=== PATIENT | male | born 1945 | race Caucasian/White ===

== ENCOUNTER → 2019-08-29 | Outpatient (CLI) | payer OTHER ==
[~2019-08-29] MED LIST: ALPHAGAN-P 0.2%5 ML OPH; ASPIRIN81 M1 PO; COZAAR25 MG PO; FLOMAX0.4 MG PO; HUMULIN R100 U/ML; LANTUS100 U/ML; LIPITOR40 MG PO; XALATAN 0.005%2.5 ML INTRAOC
== END ==
LOC: RESCLI 13:46
DX: E10.319 Type 1 diabetes mellitus with unspecified diabetic retinopathy without macular edema (principal); E78.5 Hyperlipidemia, unspecified; I25.10 Atherosclerotic heart disease of native coronary artery without angina pectoris; I73.9 Peripheral vascular disease, unspecified; I10 Essential (primary) hypertension; E03.9 Hypothyroidism, unspecified; Z76.89 Persons encountering health services in other specified circumstances; Z79.899 Other long term (current) drug therapy

== ENCOUNTER → 2019-09-06 | Outpatient (CLI) | payer OTHER ==
[2019-09-06 09:12] LABS: BASO # 0.1 10*3/uL (0.0-0.1); BASO % 0.9 % (0.0-1.0); EOS # 0.5 10*3/uL (0.0-0.4); EOS % 5.7 % (1.0-4.0); HEMATOCRIT 37.1 % (42.0-52.0); HEMOGLOBIN 11.8 g/dl (14.0-18.0); LYMPH # 2.6 10*3/uL (1.3-4.4); LYMPH % 28.6 % (27.0-41.0); MEAN CELL VOLUME 96.9 fl (80.0-94.0); MEAN CORPUSCULAR HGB 30.8 pg (27.0-31.0); MEAN CORPUSCULAR HGB CONC 31.8 g/dl (33.0-37.0); MEAN PLATELET VOLUME 10.3 fl (9.6-12.3); MONO # 0.8 10*3/uL (0.1-1.0); MONO % 8.8 % (3.0-9.0); NEUT % 55.8 % (47.0-73.0); PLATELET COUNT AUTOMATED 225 10*3/uL (130-400); RED BLOOD COUNT 3.83 10*6/uL (4.50-5.90); RED CELL DISTRI WIDTH 14.3 % (0-14.5)
[2019-09-06 09:46] LABS: ALBUMIN 3.3 gm/dl (3.1-4.5); ALKALINE PHOSPHATASE 79 U/L (45-117); BUN 21 mg/dl (7-24); CHLORIDE 104 mmol/L (98-107); CHOLESTEROL 141 mg/dL (<200); HDL CHOLESTEROL 57 mg/dl (40-60); LDL CHOLESTEROL 68 mg/dL (9-159); POTASSIUM 4.5 mmol/L (3.5-5.1); SGOT/AST 15 IU/L (3-35); SGPT/ALT 26 U/L (12-78); SODIUM 140 mmol/L (136-145); TOTAL PROTEIN 6.7 gm/dL (6.4-8.2); TRIGLYCERIDES 82 mg/dl (<150); VLDL CHOLESTEROL 16 mg/dL (6-40)
== END | disposition home or self-care (01) ==
LOC: LAB 08:33
PROVIDERS: Internal Medicine
DX: E03.9 Hypothyroidism, unspecified (principal); E10.319 Type 1 diabetes mellitus with unspecified diabetic retinopathy without macular edema; E78.5 Hyperlipidemia, unspecified

== ENCOUNTER 2019-09-07 11:19 | Emergency (ER) | payer OTHER ==
[~2019-09-07] VITALS: Ht 152.4 cm; Wt 47.6 kg
[2019-09-07 14:18] LABS: INTERNATIONAL NORM RATIO 0.9 (2.0-3.5)
== END 2019-09-07 15:09 | disposition home or self-care (01) ==
LOC: ED 11:19
PROVIDERS: Emergency Medicine
DX: I82.4Y2 Acute embolism and thrombosis of unspecified deep veins of left proximal lower extremity (principal); I10 Essential (primary) hypertension; E11.9 Type 2 diabetes mellitus without complications; E78.00 Pure hypercholesterolemia, unspecified; Z98.62 Peripheral vascular angioplasty status; Z79.4 Long term (current) use of insulin; Z79.899 Other long term (current) drug therapy; Z79.82 Long term (current) use of aspirin; Z90.49 Acquired absence of other specified parts of digestive tract

== ENCOUNTER → 2019-10-21 | Outpatient (CLI) | payer OTHER | END | disposition home or self-care (01) | LOC: US 13:50 | DX: I73.9 Peripheral vascular disease, unspecified (principal); R60.0 Localized edema ==

== ENCOUNTER → 2019-10-24 | Outpatient (CLI) | payer OTHER | END | disposition home or self-care (01) | LOC: RESCLI 00:37 | PROVIDERS: Internal Medicine | DX: I10 Essential (primary) hypertension (principal); E03.9 Hypothyroidism, unspecified; E78.5 Hyperlipidemia, unspecified; E10.319 Type 1 diabetes mellitus with unspecified diabetic retinopathy without macular edema; I25.10 Atherosclerotic heart disease of native coronary artery without angina pectoris; D53.9 Nutritional anemia, unspecified; Z79.4 Long term (current) use of insulin; Z79.82 Long term (current) use of aspirin; Z79.899 Other long term (current) drug therapy ==

== ENCOUNTER → 2019-12-13 | Day surgery (SDC) | payer OTHER ==
[~2019-12-13] VITALS: Ht 152.4 cm; Wt 47.6 kg
[~2019-12-13] MED LIST changes: +HUMULIN R100 UNIT/1 SQ; +KEFLEX 500 MG E2 CAP PO; +LEVEMIR100 UNIT/1 SC
[2019-12-13 11:00] VITALS: BP 181/82
[2019-12-13 12:10] VITALS: BP 143/63
[2019-12-13 12:25] VITALS: BP 164/80
[2019-12-13 12:44] VITALS: BP 174/90
[2019-12-14 15:03] LABS: ACID FAST SPEC PROCESSING Tissue Grinding (.)
== END | disposition home or self-care (01) ==
LOC: SDC 12-11 09:30
PROVIDERS: Podiatrist
DX: I96 Gangrene, not elsewhere classified (principal); I10 Essential (primary) hypertension; E11.9 Type 2 diabetes mellitus without complications; E78.00 Pure hypercholesterolemia, unspecified; I25.10 Atherosclerotic heart disease of native coronary artery without angina pectoris; Z82.49 Family history of ischemic heart disease and other diseases of the circulatory system; Z83.3 Family history of diabetes mellitus

== ENCOUNTER → 2020-04-28 | Outpatient (CLI) | payer OTHER | END | disposition home or self-care (01) | LOC: US 14:14 | PROVIDERS: ATTEND Podiatrist | DX: I96 Gangrene, not elsewhere classified (principal) ==

== ENCOUNTER 2020-06-16 11:32 | Inpatient (IN) | payer OTHER ==
[~2020-06-16] VITALS: Wt 49.9 kg
[2020-06-16] VITALS (15 sets, daily range): BP systolic 121–1132; BP diastolic 49–88
[~2020-06-16 11:32] MED LIST changes: +COZAAR100 MG PO; -COZAAR25 MG PO
[2020-06-16 12:04] LABS: BASO # 0.1 10*3/uL (0.0-0.1); BASO % 0.5 % (0.0-1.0); EOS # 0.5 10*3/uL (0.0-0.4); EOS % 3.9 % (1.0-4.0); HEMATOCRIT 24.1 % (42.0-52.0); LYMPH # 2.2 10*3/uL (1.3-4.4); LYMPH % 18.4 % (27.0-41.0); MEAN CELL VOLUME 89.3 fl (80.0-94.0); MEAN CORPUSCULAR HGB CONC 30.3 g/dl (33.0-37.0); MEAN PLATELET VOLUME 8.9 fl (9.6-12.3); MONO # 1.3 10*3/uL (0.1-1.0); MONO % 10.7 % (3.0-9.0); NEUT % 66.1 % (47.0-73.0); PLATELET COUNT AUTOMATED 528 10*3/uL (130-400); RED CELL DISTRI WIDTH 19.1 % (0-14.5); WHITE BLOOD COUNT 12.1 10*3/uL (4.8-10.8)
[2020-06-16 12:17] LABS: ACT PARTIAL THROMBO TIME 20.2 SECONDS (20.0-32.1)
[2020-06-16 12:21] LABS: ALBUMIN 2.7 gm/dl (3.1-4.5); ALKALINE PHOSPHATASE 189 U/L (45-117); BUN 28 mg/dl (7-24); CHLORIDE 102 mmol/L (98-107); CREATININE 0.99 mg/dL (0.70-1.30); POTASSIUM 4.1 mmol/L (3.5-5.1); SGOT/AST 35 IU/L (3-35); SGPT/ALT 40 U/L (12-78); SODIUM 139 mmol/L (136-145); TOTAL PROTEIN 7.3 gm/dL (6.4-8.2)
--- NOTE | 2020-06-16 14:25 | NUR ---
SPOUSE EDNA [phone]
[2020-06-16] MEDS ORDERED: AMLODIPINE BESY10 MG PO (14:33)
[2020-06-16] MEDS ORDERED: DIALYVITE VIT125 MCG PO (14:36)
[2020-06-16] MEDS ORDERED: NEURONTIN100 MG PO (14:37)
[2020-06-16] MEDS ORDERED: BASAG SOL SC (14:39)
[2020-06-16] MEDS ORDERED: LEVOTHYROXINE75 MCG PO (14:41)
[2020-06-16] MEDS ORDERED: OXYCODONE HCL5 M1 PO (14:42)
[2020-06-16] MEDS ORDERED: OXYCODONE HCL PO (14:42)
[2020-06-16] MEDS ORDERED: SENNA8.6 MG PO (14:43)
--- NOTE | 2020-06-16 15:52 | NUR ---
PT HAS RECENT LEFT BELOW LEG AMPUTATION RECENTLY, HONG INTACT, EDGES WELL APROXIMATED, PINK IN COLOR. BUTTOCKS ARE RED, AND BLANCHABLE, COVERED WITH DRESSING FROM NURSING FACILITY.
--- NOTE | 2020-06-16 15:59 | NUR ---
A 75, admitted to [facility], under the services of RICA Albert MD with a diagnosis of GI BLEED. Chief complaint is SENT FROM [facility]. . Patient arrived via stretcher from ER. Monitor applied. Initial assessment completed. Vital signs taken and recorded. DR. ALONA BATES,RICA Ellis notified of admission to the unit. Orders received. See assessment for past medical history, medications and allergies. Patient and/or family oriented to unit. [facility] visitation policy reviewed JANET WOMACK
--- NOTE | 2020-06-16 20:20 | NUR ---
PATIENT ARRIVED ON THE FLOOR AT THIS TIME. RECEIVED REPORT FROM CALLI BORDEN. VSS. BED IN LOWEST POSITION,CALL LIGHT WITHIN REACH. BED ALARM ON. WILL CONTINUE TO MONITOR.
--- NOTE | 2020-06-16 20:30 | NUR ---
DR. BUSTILLOS ALREADY AWARE OF CONSULT. EGD SCHEDULED FOR TOMORROW MORNING. PATIENT MADE AWARE OF PLAN.
--- NOTE | 2020-06-16 21:00 | NUR ---
NOTIFIED DR. SAGE PATIENT HAS ARRIVED ONTO THE FLOOR. SEE NEW ORDERS.
[2020-06-17] VITALS (9 sets, daily range): BP systolic 82–165; BP diastolic 36–80
--- NOTE | 2020-06-17 | NUR ---
PATIENTS' WATER TAKEN AT THIS TIME. REMINDED HE IS TO BE NPO UNTIL EGD IS DONE. PATIENT VOICES UNDERSTANDING. WILL CONTINUE TO MONITOR.
--- NOTE | 2020-06-17 07:30 | NUR ---
TOOK OVER CARE OF PT. PT RESTING IN BED. RESPIRATIONS EASY AND UNLABORED. NO S/S OF DISTRESS NOTED. CALL LIGHT IN REACH.
--- NOTE | 2020-06-17 08:04 | NUR ---
PATIENT [facility]. PRECERT WILL BE REQUIRED TO RETURN. WILL NEED PT/OT EVALS.
--- NOTE | 2020-06-17 09:00 | NUR ---
Occupational Therapy evaluation completed on 5 with full evaluation to follow. Precautions include BLE BKAs,weakness,moderate complexity level 28050. Recommend OT per POC and SNF upon d/c to enable return home w/ at [facility]. Thank you. Anat Glass OTr/
--- NOTE | 2020-06-17 10:47 | NUR ---
PHYSICAL THERAPY Progress note: Pt was seen today for PT evaluation while on 5th floor. Pt was agreeable and moderate complexity determined based on function and co-morbidities. Recommend SNF upon discharge, refer to evaluation for details. Thank you for this referral. dAelia Galindo, PT
--- NOTE | 2020-06-17 12:57 | NUR ---
OT NOTE Pt was seen this P.M. 1:1 for 10 minute OT session. Upon arrival pt was sitting upright in the w/c. Pt identified by name and and had no complaints at this time. Requested for pt to complete various tasks and pt declined them all stating he was just wanting his surgery and that's all. Pt transferred w/c to EOB with CGA while completing lateral scoot. He then transferred sit to supine with SBA. There he was left with call light in hand, tray table in place, and bed alarm activated for safety. Continue with rec D/C plan to SNF. ASHVIN Pereyra/Jesika
--- NOTE | 2020-06-17 14:08 | NUR ---
PHYSICAL THERAPY TREATMENT TIME: IN 12:52 PM - 1:05 PM 13 MINUTES TOTAL Patient presented to therapy in sitting in bedside wheelchair with report of 0/10 pain level in the L LE. Patient says he doesn't want to do therapy right now because he is going for a medical test this afternoon. Patient does agree to transfer from wheelchair to the bed. Patient transferred sitting in bedside wheelchair to the EOB with SBA. Patient's R armrest was removed from wheelchair. Patient transferred sit EOB to supine in bed with SBA. Patient was left supine in bed with head of bed elevated. Patient's bed alarm was activated. ASHVIN Meyer was present as witness to this treamtent. Patient was 1:1 with this INSPECTOR SUBASSEMBLY for 13 minutes total. IVETTE BARRERA INSPECTOR SUBASSEMBLY
--- NOTE | 2020-06-17 14:30 | NUR ---
PT TAKEN TO SURGERY AT THIS TIME.
--- NOTE | 2020-06-17 17:00 | NUR ---
PT RETURNS FROM SURGERY. WILL CATCH PT UP ON MEDICATIONS. PT STABLE AND HAS NO COMPLAINTS.
--- NOTE | 2020-06-17 19:37 | NUR ---
24 HR chart check completed.
--- NOTE | 2020-06-17 21:16 | NUR ---
CHECKED PT'S BLOOD SUGAR, IT WAS 333. PT REFUSED TO LET ME RECHECK IT TO VERIFY. STATED "JUST GIVE ME THE INSULIN YOU NEED TOO, I'LL BE FINE". EDUCATION WAS PROVIDED ON THE IMPORTANCE OF RECHECKING HIS SUGAR. PT HAD RECEIVED 10 UNITS OF HUMULIN R AND 25 UNITS OF LANTUS PER ORDER. PT STATED THAT WE MAY RECHECK HIS BLOOD SUGAR IN THE MORNING, BUT NOT TONIGHT.
--- NOTE | 2020-06-17 23:30 | NUR ---
ASSUMED CARE OF PT AT THIS TIME. PT SLEEPING. NO S/S OF DISTRESS NOTED. CALL LIGHT IN REACH
[2020-06-18] VITALS: BP 126/59
--- NOTE | 2020-06-18 05:30 | NUR ---
IN TO SEE PT. PT VOICES NO COMPLAINTS. CALL LIGHT IN REACH
--- NOTE | 2020-06-18 06:43 | NUR ---
PT BSG 29. DR. CAR NOTIFIED. ORDERS RECEIVED. PT REFUSING SECOND BLOOD SUGAR CHECK PER POLICY.
--- NOTE | 2020-06-18 06:53 | NUR ---
IN TO GIVE PT DEXTROSE PER DR. CAR ORDER. PT STATES " I DONT NEED THAT CRAP, JUST GIVE ME SOME ORANGE JUICE" EDUCATED PT REASON FOR DEXTROSE. PT REFUSING TO TAKE IT. PT IS ASYMPTOMATIC. PT DRINKING ORANGE JUICE AT THIS TIME. WILL RECHECK SUGAR IN AN HOUR.
--- NOTE | 2020-06-18 07:37 | NUR ---
PRECERT REQUIRED FOR PATIENT TO RETURN TO [facility]. OFFICE ADMINISTRATION FAXED UPDATES TO [facility].
[2020-06-18 08:00] VITALS: BP 150/68
--- NOTE | 2020-06-18 08:00 | NUR ---
BLOOD SUGAR RECHECKED, 118.
--- NOTE | 2020-06-18 09:00 | NUR ---
CM in to see patient. He is currently short term at [facility] and plans to return there upon discharge. 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
--- NOTE | 2020-06-18 10:35 | NUR ---
PHYSICAL THERAPY Patient seen this am 1;1 for therapy visit and was supine in bed upon therapist arrival. Patient identified by name / and reports no new c/o's at this time. Patient is B BKA and reviewed safe transfer technique prior to transfering supine to sit EOB, SBA x 1, tolerating a minute or so of static EOB sit to collect himself. Patient completed lateral scoot transfer from EOB to w/c, CGA, demonstrating Fair+ safety / balance, Patient stated he usually spends time on his couch and does not transfer between w/c on a regular basis throughout the day. Patient returned to supine in bed CGA x 1 and remained with call light, tray table, telephone, bed alarm for safety. Will continue per POC as tolerated, total treatment time 13 minutes. Simón Pan, LEAD INJECTION MOLD TECHNICIAN
--- NOTE | 2020-06-18 10:50 | NUR ---
OT NOTE Pt was seen this A.m. 1:1 for 15 minute OT session. Upon arrival pt was supine in bed. Pt identified by name and and had no complaints at this time. Pt was agreeable to one transfer to the chair and back and then no other activity at this time. Pt transferred supine to sit EOB with CGA followed by lateral scoot EOB <> w/c with CGA for safety. Pt was left supine in bed with call light in hand, tray table in place, and bed alarm activated for safety. Continue with rec D/C plan SNF. ASHVIN Pereyra/Jesika
[2020-06-18 12:00] VITALS: BP 139/57
--- NOTE | 2020-06-18 12:00 | NUR ---
PT RESTING IN BED. NO COMPLAINTS VOICED. BLOOD SUGAR 149. ALL NEEDS CURRENTLY MET. CALL LIGHT IN [facility].
[2020-06-18 16:00] VITALS: BP 133/57
--- NOTE | 2020-06-18 19:00 | NUR ---
REPORT RECEIVED. PT LYING IN BED AT THIS TIME WITH EYES CLOSED. NO COMPLAINTS. CALL LIGHT IN REACH.
[2020-06-18 20:00] VITALS: BP 113/52
--- NOTE | 2020-06-18 21:00 | NUR ---
IN TO SEE PT. VOICES NO COMPLAINTS. CALL LIGHT IN REACH
--- NOTE | 2020-06-18 23:04 | NUR ---
PT APPEARS TO BE SLEEPING AT THIS TIME. RESPIRATIONS EASY AND UNLABORED. CALL LIGHT IN REACH
[2020-06-19] VITALS: BP 149/76
--- NOTE | 2020-06-19 00:43 | NUR ---
24 HR chart check completed.
--- NOTE | 2020-06-19 02:30 | NUR ---
PT SLEEPING AT THIS TIME
[2020-06-19 06:33] LABS: BASO # 0.1 10*3/uL (0.0-0.1); BASO % 0.8 % (0.0-1.0); EOS # 0.6 10*3/uL (0.0-0.4); EOS % 6.2 % (1.0-4.0); HEMATOCRIT 36.4 % (42.0-52.0); LYMPH # 2.6 10*3/uL (1.3-4.4); LYMPH % 28.5 % (27.0-41.0); MEAN CELL VOLUME 89.9 fl (80.0-94.0); MEAN CORPUSCULAR HGB 28.6 pg (27.0-31.0); MEAN CORPUSCULAR HGB CONC 31.9 g/dl (33.0-37.0); MEAN PLATELET VOLUME 8.9 fl (9.6-12.3); MONO % 10.4 % (3.0-9.0); NEUT # 4.9 10*3/uL (2.3-7.9); NEUT % 53.8 % (47.0-73.0); PLATELET COUNT AUTOMATED 554 10*3/uL (130-400); RED BLOOD COUNT 4.05 10*6/uL (4.50-5.90); RED CELL DISTRI WIDTH 17.7 % (0-14.5); WHITE BLOOD COUNT 9.2 10*3/uL (4.8-10.8)
--- NOTE | 2020-06-19 06:48 | NUR ---
BSG 31. DR. SAGE NOTIFIED. PT REFUSING DEXTROSE. PT WANTED ORANGE JUICE. PER DR SAGE, WILL RECHECK IN ONE HOUR.
[2020-06-19 08:00] VITALS: BP 111/91
--- NOTE | 2020-06-19 08:30 | NUR ---
CM in to see patient. He is currently short term at [facility] and plans to return there upon discharge. 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 Narendra started this morning. COVID pending.
--- NOTE | 2020-06-19 09:30 | NUR ---
PHYSICAL THERAPY Patient seen this am 1;1 for therapy visit and was resting supine in bed upon therapist arrival. Patient identified by name / and joined by OT group fitness assistant department head for observation only this session. Patient reports feeling mild generalized weakness and transfers supine to sit EOB, CGA x 1. Patient tolerated static EOB sit for a minute or so to collect himself, SBA then instructed on safe sliding board transfer to w/c. Patient performed lateral scoot transfer with use of sliding board from EOB sit to w/c, MIN A x 2, demonstrating forward facing LOB x 1, requiring MIN therapist assist correct. Patient returned to EOB sit via sliding board transfer with increased fatigue noted and sit to supine MIN A for HOB positioning. Patient remained in bed with call light, tray table, telephone and bed alarm for safety. Will continue per POC as tolerated, total treatment time 16 minutes. Simón Pan, ASSIGNMENT OFFICER
--- NOTE | 2020-06-19 09:30 | NUR ---
OT NOTE PATIENT IN BED UPON ARRIVAL.PATIENT COMPLETED 15 MINUTES OF OT THIS DATE. PATIENT RELUCTANT TO COMPLETE THERAPY BUT WILLING AFTER EDUCATION. PATIENT IDENTIFIED BY NAME AND DATE OF . COMPLETED SUPINE TO SIT EOB USE RAIL INCREASE TIME SBA. COMPLETED SLIDE BOARD TRANSFER BED TO AND FROM W/C MIN A X 2 WITH INCREASE TIME AND MODERATE VERBAL CUES TECHNIQUE AND TO LIFT BOTTOM WITH BANDAGE INTACT. PATIENT DEMONSTRATED LOSS OF BALANCE TRANSFERING W/C TO BED MIN A X 2 USE SLIDE BOARD WITH MIN A TO RECOVER. PILLOW CASE APPLIED TO SLIDE BOARD BARRIER FOR INCREASE SKIN INTEGRITY. COMPLETED UB DRESSING GOWN MIN A TO MANAGE TIES. SIT TO SUPINE MIN A. PATIENT IN BED WITH ALARM SET AND CALL LIGHT WITHIN REACH. CONTINUE TOWARDS PLAN OF CARE. BALA LOCK/Jesika
--- NOTE | 2020-06-19 10:27 | NUR ---
DATABASE ADMINISTRATION MANAGER FAXED UPDATES TO [facility]. DATABASE ADMINISTRATION MANAGER ASKED TO BE PRECERT STARTED.
[2020-06-19 12:00] VITALS: BP 130/58
--- NOTE | 2020-06-19 12:34 | NUR ---
PRECERT IS PENDING.
--- NOTE | 2020-06-19 12:41 | NUR ---
DISCHARGE PICTURE TAKEN
--- NOTE | 2020-06-19 14:21 | NUR ---
PHYSICAL THERAPY CO-SIGN I approve of the Physical Therapy notes written above. Mely Varghese PT
--- NOTE | 2020-06-19 14:33 | NUR ---
OCCUPATIONAL THERAPY CO-SIGN I approve of the Occupational Therapy notes written above. NYDIA JORDAN OTR/Jesika
[2020-06-19 16:00] VITALS: BP 105/57
--- NOTE | 2020-06-19 17:51 | NUR ---
REPORT TO [facility]
[2020-06-19] MEDS ORDERED: Carafate1 GM PO (17:55)
[2020-06-19] MEDS ORDERED: PROTONIX40 MG PO (17:55)
--- NOTE | 2020-06-19 18:16 | NUR ---
PTS WALLET AND WATCH, PANTS AND TSHIRT RETURNED TO PT, GLASSES ARE ON PT NO OTHER CLOTHING FOUND PT THOUGHT HE MIGHT HAVE BRIEFS
--- NOTE | 2020-06-19 18:29 | NUR ---
RETURN TO [facility] VIA [facility]
== END 2020-06-19 18:29 | disposition other institution (70) | DRG 378 ==
LOC: ED 11:32 → EDHOLD 13:39 → 5E 13:39
PROVIDERS: Emergency Medicine; Internal Medicine Gastroenterology; ADMIT Internal Medicine; ATTEND Internal Medicine
PROC: 30233N1 Transfusion of Nonautologous Red Blood Cells into Peripheral Vein, Percutaneous Approach (ICD-10-PCS; principal; 2020-06-16)
PROC: 0DB68ZX Excision of Stomach, Via Natural or Artificial Opening Endoscopic, Diagnostic (ICD-10-PCS; 2020-06-17)
DX: K29.71 Gastritis, unspecified, with bleeding (principal); D62 Acute posthemorrhagic anemia; E44.0 Moderate protein-calorie malnutrition; K25.4 Chronic or unspecified gastric ulcer with hemorrhage; K26.4 Chronic or unspecified duodenal ulcer with hemorrhage; E03.9 Hypothyroidism, unspecified; E11.42 Type 2 diabetes mellitus with diabetic polyneuropathy; Z20.828 Contact with and (suspected) exposure to other viral communicable diseases; I25.10 Atherosclerotic heart disease of native coronary artery without angina pectoris; G89.29 Other chronic pain; M54.5 Low back pain; E78.2 Mixed hyperlipidemia; E11.51 Type 2 diabetes mellitus with diabetic peripheral angiopathy without gangrene; Z98.52 Vasectomy status; Z90.49 Acquired absence of other specified parts of digestive tract; Z89.512 Acquired absence of left leg below knee; Z89.511 Acquired absence of right leg below knee; Z83.3 Family history of diabetes mellitus; Z82.49 Family history of ischemic heart disease and other diseases of the circulatory system

== ENCOUNTER → 2020-11-16 | Outpatient (CLI) | payer OTHER ==
[~2020-11-16] MED LIST changes: +AMLODIPINE BESY10 MG PO; +BASAG SOL SC; +Carafate1 GM PO; +DIALYVITE VIT125 MCG PO; +LEVOTHYROXINE75 MCG PO; +NEURONTIN100 MG PO; +OXYCODONE HCL PO; +OXYCODONE HCL5 M1 PO; +PROTONIX40 MG PO; +SENNA8.6 MG PO
[2020-11-16 09:58] LABS: CHLORIDE 107 mmol/L (98-107); POTASSIUM 4.3 mmol/L (3.5-5.1); SODIUM 142 mmol/L (136-145)
[2020-11-16 10:31] LABS: ALBUMIN 3.8 gm/dl (3.1-4.5); ALKALINE PHOSPHATASE 95 U/L (45-117); BUN 20 mg/dl (7-24); CHOLESTEROL 136 mg/dL (<200); CREATININE 0.91 mg/dL (0.70-1.30); FREE T4 1.06 ng/dl (0.76-1.46); HDL CHOLESTEROL 69 mg/dl (40-60); LDL CHOLESTEROL 56 mg/dL (9-159); SGOT/AST 20 IU/L (3-35); SGPT/ALT 49 U/L (12-78); TOTAL PROTEIN 7.6 gm/dL (6.4-8.2); TRIGLYCERIDES 56 mg/dl (<150); VLDL CHOLESTEROL 11 mg/dL (6-40)
[2020-11-17 10:07] LABS: CREATININE,URINE 55.1 mg/dL (Not Estab.)
== END | disposition home or self-care (01) ==
LOC: LAB 08:40
PROVIDERS: ATTEND Internal Medicine Endocrinology, Diabetes & Metabolism
DX: E10.319 Type 1 diabetes mellitus with unspecified diabetic retinopathy without macular edema (principal); E55.9 Vitamin D deficiency, unspecified; E03.9 Hypothyroidism, unspecified

== ENCOUNTER → 2021-03-10 | Outpatient (CLI) | payer OTHER ==
[2021-03-10 09:54] LABS: ALBUMIN 3.9 gm/dl (3.1-4.5); ALKALINE PHOSPHATASE 74 U/L (45-117); BUN 25 mg/dl (7-24); CHLORIDE 105 mmol/L (98-107); CHOLESTEROL 139 mg/dL (<200); CREATININE 1.32 mg/dL (0.70-1.30); LDL CHOLESTEROL 62 mg/dL (9-159); POTASSIUM 4.9 mmol/L (3.5-5.1); SGOT/AST 24 IU/L (3-35); SGPT/ALT 33 U/L (12-78); SODIUM 139 mmol/L (136-145); TOTAL PROTEIN 7.7 gm/dL (6.4-8.2); TRIGLYCERIDES 58 mg/dl (<150)
== END | disposition home or self-care (01) ==
LOC: LAB 08:57
PROVIDERS: ATTEND Internal Medicine Endocrinology, Diabetes & Metabolism
DX: E10.319 Type 1 diabetes mellitus with unspecified diabetic retinopathy without macular edema (principal); E55.9 Vitamin D deficiency, unspecified

== ENCOUNTER → 2021-04-09 | Outpatient (CLI) | payer OTHER ==
[2021-04-09 11:14] LABS: FREE T4 0.87 ng/dl (0.76-1.46)
[2021-04-09 11:19] LABS: THYROID STIM HORMONE (HS) 4.97 uIU/ml (0.358-4.75)
[2021-04-10 09:06] LABS: CREATININE,URINE 69.2 mg/dL (Not Estab.)
== END | disposition home or self-care (01) ==
LOC: LAB 09:59
PROVIDERS: ATTEND Internal Medicine Endocrinology, Diabetes & Metabolism
DX: E03.9 Hypothyroidism, unspecified (principal)

== ENCOUNTER → 2021-06-22 | Outpatient (CLI) | payer OTHER ==
[2021-06-22 11:37] LABS: ALBUMIN 3.7 gm/dl (3.1-4.5); ALKALINE PHOSPHATASE 78 U/L (45-117); BUN 23 mg/dl (7-24); CHLORIDE 106 mmol/L (98-107); CHOLESTEROL 142 mg/dL (<200); CREATININE 1.04 mg/dL (0.70-1.30); FREE T4 1.45 ng/dl (0.76-1.46); LDL CHOLESTEROL 57 mg/dL (9-159); POTASSIUM 4.2 mmol/L (3.5-5.1); SGOT/AST 25 IU/L (3-35); SGPT/ALT 38 U/L (12-78); SODIUM 140 mmol/L (136-145); TOTAL PROTEIN 7.5 gm/dL (6.4-8.2); TRIGLYCERIDES 74 mg/dl (<150)
== END | disposition home or self-care (01) ==
LOC: LAB 10:47
PROVIDERS: ATTEND Internal Medicine Endocrinology, Diabetes & Metabolism
DX: E10.319 Type 1 diabetes mellitus with unspecified diabetic retinopathy without macular edema (principal); E03.9 Hypothyroidism, unspecified; E55.9 Vitamin D deficiency, unspecified

== ENCOUNTER 2021-11-22 10:01 | Emergency (ER) | payer OTHER ==
[~2021-11-22] VITALS: Wt 40.8 kg
[2021-11-22 10:21] LABS: BASO # 0.1 10*3/uL (0.0-0.1); BASO % 0.7 % (0.0-1.0); EOS # 1.1 10*3/uL (0.0-0.4); EOS % 8.9 % (1.0-4.0); HEMATOCRIT 40.4 % (42.0-52.0); LYMPH % 32.9 % (27.0-41.0); MEAN CORPUSCULAR HGB 30.5 pg (27.0-31.0); MEAN CORPUSCULAR HGB CONC 33.9 g/dl (33.0-37.0); MEAN PLATELET VOLUME 10.8 fl (9.6-12.3); MONO % 8.3 % (3.0-9.0); PLATELET COUNT AUTOMATED 282 10*3/uL (130-400); RED BLOOD COUNT 4.49 10*6/uL (4.50-5.90); RED CELL DISTRI WIDTH 13.4 % (0-14.5); WHITE BLOOD COUNT 12.2 10*3/uL (4.8-10.8)
[2021-11-22 10:30] LABS: ACT PARTIAL THROMBO TIME 26.4 SECONDS (20.0-32.1)
[2021-11-22 11:01] LABS: ALKALINE PHOSPHATASE 72 U/L (45-117); BUN 21 mg/dl (7-24); CHLORIDE 100 mmol/L (98-107); POTASSIUM 4.3 mmol/L (3.5-5.1); SGOT/AST 26 IU/L (3-35); SGPT/ALT 31 U/L (12-78); SODIUM 136 mmol/L (136-145); TOTAL PROTEIN 7.4 gm/dL (6.4-8.2)
== END 2021-11-23 08:00 | disposition short-term general hospital (02) ==
LOC: ED 10:01
PROVIDERS: Emergency Medicine
DX: I21.4 Non-ST elevation (NSTEMI) myocardial infarction (principal); E10.9 Type 1 diabetes mellitus without complications; Z79.899 Other long term (current) drug therapy; Z79.82 Long term (current) use of aspirin; Z90.49 Acquired absence of other specified parts of digestive tract; Z90.89 Acquired absence of other organs; Z98.890 Other specified postprocedural states

== ENCOUNTER → 2022-03-02 | Outpatient (CLI) | payer OTHER | END | disposition home or self-care (01) | LOC: RAD 11:14 | PROVIDERS: ATTEND Internal Medicine | DX: M89.8X9 Other specified disorders of bone, unspecified site (principal); M25.70 Osteophyte, unspecified joint ==

== ENCOUNTER → 2022-07-27 | Outpatient (CLI) | payer OTHER ==
[2022-07-27 08:54] LABS: HEMATOCRIT 39.9 % (42.0-52.0); MEAN CELL VOLUME 93.4 fl (80.0-94.0); MEAN CORPUSCULAR HGB 30.2 pg (27.0-31.0); MEAN CORPUSCULAR HGB CONC 32.3 g/dl (33.0-37.0); RED BLOOD COUNT 4.27 10*6/uL (4.50-5.90); WHITE BLOOD COUNT 8.6 10*3/uL (4.8-10.8)
[2022-07-27 09:21] LABS: ALKALINE PHOSPHATASE 69 U/L (46-116); BUN 18 mg/dl (9-23); CHLORIDE 103 mmol/L (98-107); CHOLESTEROL 128 mg/dL (<200); CREATININE 1.15 mg/dL (0.70-1.30); LDL CHOLESTEROL 61 mg/dL (9-159); POTASSIUM 4.3 mmol/L (3.4-5.1); SGPT/ALT 16 U/L (10-49); SODIUM 138 mmol/L (136-145); THYROID STIM HORMONE (HS) 15.445 uIU/ml (0.550-4.780); TOTAL PROTEIN 6.8 gm/dL (6.0-8.0); TRIGLYCERIDES 62 mg/dl (<150)
== END | disposition home or self-care (01) ==
LOC: LAB 08:15
PROVIDERS: ATTEND Internal Medicine
DX: Z12.5 Encounter for screening for malignant neoplasm of prostate (principal); I10 Essential (primary) hypertension; E78.2 Mixed hyperlipidemia; E10.42 Type 1 diabetes mellitus with diabetic polyneuropathy

== ENCOUNTER → 2022-09-19 | Outpatient (CLI) | payer OTHER ==
[2022-09-19 13:23] LABS: BILIRUBIN Negative (Negative); BLOOD Negative (Negative); CLARITY Clear (Clear); COLOR Yellow (Yellow); GLUCOSE Negative (Negative); KETONE Negative (Negative); LEUKO ESTERASE Negative (Negative); NITRITE Negative (Negative); SPECIFIC GRAVITY 1.015 (1.001-1.030)
[2022-09-19 13:32] LABS: EPITHELIAL CELLS 0-2
== END | disposition home or self-care (01) ==
LOC: LAB 12:14
PROVIDERS: ATTEND Nurse Practitioner Family
DX: R30.0 Dysuria (principal); R97.20 Elevated prostate specific antigen [PSA]

== ENCOUNTER → 2022-12-02 | Outpatient (CLI) | payer OTHER ==
[2022-12-02 09:22] LABS: BILIRUBIN Negative (Negative); BLOOD Negative (Negative); CLARITY Clear (Clear); COLOR Yellow (Yellow); GLUCOSE Negative (Negative); KETONE Trace (Negative); LEUKO ESTERASE Negative (Negative); NITRITE Negative (Negative); PH 5.5 (4.5-8.0)
[2022-12-02 09:36] LABS: ALKALINE PHOSPHATASE 106 U/L (46-116); BUN 17 mg/dl (9-23); CHLORIDE 105 mmol/L (98-107); CHOLESTEROL 127 mg/dL (<200); FREE T4 1.29 ng/dl (0.89-1.76); LDL CHOLESTEROL 59 mg/dL (9-159); POTASSIUM 4.1 mmol/L (3.4-5.1); SGPT/ALT 46 U/L (10-49); THYROID STIM HORMONE (HS) 1.977 uIU/ml (0.550-4.780); TOTAL PROTEIN 6.9 gm/dL (6.0-8.0); TRIGLYCERIDES 56 mg/dl (<150)
[2022-12-02 09:55] LABS: VITAMIN D, 25-HYDROXY 30.7 ng/mL (30-100)
[2022-12-02 10:31] LABS: MUCOUS TRACE; RBC 0-2 rbc/hpf (0-2); WBC 0-2 wbc/hpf (0-5)
== END | disposition home or self-care (01) ==
LOC: LAB 08:31
PROVIDERS: ATTEND Internal Medicine
DX: E11.65 Type 2 diabetes mellitus with hyperglycemia (principal); E78.5 Hyperlipidemia, unspecified; E03.9 Hypothyroidism, unspecified; E55.9 Vitamin D deficiency, unspecified; D64.9 Anemia, unspecified

== ENCOUNTER → 2023-01-11 | Outpatient (CLI) | payer OTHER ==
[2023-01-11 14:40] LABS: BASO # 0.1 10*3/uL (0.0-0.1); BASO % 0.7 % (0.0-1.0); EOS # 1.1 10*3/uL (0.0-0.4); EOS % 10.8 % (1.0-4.0); HEMATOCRIT 38.8 % (42.0-52.0); LYMPH # 2.2 10*3/uL (1.3-4.4); LYMPH % 21.3 % (27.0-41.0); MEAN CELL VOLUME 91.3 fl (80.0-94.0); MEAN CORPUSCULAR HGB 30.6 pg (27.0-31.0); MEAN CORPUSCULAR HGB CONC 33.5 g/dl (33.0-37.0); MEAN PLATELET VOLUME 10.9 fl (9.6-12.3); MONO # 0.8 10*3/uL (0.1-1.0); MONO % 7.4 % (3.0-9.0); NEUT # 6.1 10*3/uL (2.3-7.9); NEUT % 59.4 % (47.0-73.0); PLATELET COUNT AUTOMATED 233 10*3/uL (130-400); RED BLOOD COUNT 4.25 10*6/uL (4.50-5.90); RED CELL DISTRI WIDTH 14.4 % (0-14.5); WHITE BLOOD COUNT 10.2 10*3/uL (4.8-10.8)
[2023-01-11 15:08] LABS: ALKALINE PHOSPHATASE 91 U/L (46-116); BUN 19 mg/dl (9-23); CHLORIDE 102 mmol/L (98-107); POTASSIUM 4.8 mmol/L (3.4-5.1); SGPT/ALT 33 U/L (10-49); TOTAL PROTEIN 7.1 gm/dL (6.0-8.0)
== END | disposition home or self-care (01) ==
LOC: LAB 13:53
PROVIDERS: ATTEND Radiology Radiation Oncology
DX: C61 Malignant neoplasm of prostate (principal)

== ENCOUNTER → 2023-02-01 | Outpatient (CLI) | payer OTHER ==
[2023-02-01 12:46] LABS: HEMATOCRIT 36.3 % (42.0-52.0); MEAN CELL VOLUME 92.6 fl (80.0-94.0); MEAN CORPUSCULAR HGB 30.9 pg (27.0-31.0); MEAN CORPUSCULAR HGB CONC 33.3 g/dl (33.0-37.0); MEAN PLATELET VOLUME 10.6 fl (9.6-12.3); RED BLOOD COUNT 3.92 10*6/uL (4.50-5.90); RED CELL DISTRI WIDTH 14.5 % (0-14.5); WHITE BLOOD COUNT 5.7 10*3/uL (4.8-10.8)
[2023-02-01 13:15] LABS: BUN 16 mg/dl (9-23); CHLORIDE 105 mmol/L (98-107); POTASSIUM 4.5 mmol/L (3.4-5.1)
== END | disposition home or self-care (01) ==
LOC: LAB 12:23
PROVIDERS: ATTEND Radiology Radiation Oncology
DX: C61 Malignant neoplasm of prostate (principal)

== ENCOUNTER → 2023-03-15 | Outpatient (CLI) | payer OTHER ==
[2023-03-15 09:28] LABS: HEMATOCRIT 36.5 % (42.0-52.0); MEAN CELL VOLUME 94.8 fl (80.0-94.0); MEAN CORPUSCULAR HGB 31.4 pg (27.0-31.0); MEAN CORPUSCULAR HGB CONC 33.2 g/dl (33.0-37.0); MEAN PLATELET VOLUME 10.3 fl (9.6-12.3); RED BLOOD COUNT 3.85 10*6/uL (4.50-5.90); RED CELL DISTRI WIDTH 14.9 % (0-14.5)
[2023-03-15 10:02] LABS: ALKALINE PHOSPHATASE 97 U/L (46-116); BUN 14 mg/dl (9-23); CHLORIDE 104 mmol/L (98-107); POTASSIUM 4.1 mmol/L (3.4-5.1); SGPT/ALT 39 U/L (10-49); TOTAL PROTEIN 6.7 gm/dL (6.0-8.0)
== END | disposition home or self-care (01) ==
LOC: LAB 09:01
PROVIDERS: ATTEND Radiology Radiation Oncology
DX: C61 Malignant neoplasm of prostate (principal)

== ENCOUNTER → 2023-05-31 | Outpatient (CLI) | payer OTHER | END | disposition home or self-care (01) | LOC: LAB 10:34 | PROVIDERS: ATTEND Urology | DX: R97.20 Elevated prostate specific antigen [PSA] (principal) ==

== ENCOUNTER 2023-08-11 13:04 | Inpatient (IN) | payer OTHER ==
[2023-08-11] VITALS (8 sets, daily range): BP systolic 80–160; BP diastolic 39–124
[~2023-08-11] VITALS: Ht 177.8 cm; Wt 45.4 kg
[~2023-08-11 13:04] MED LIST changes: +ALDACTONE25 MG PO; +CARVEDILOL12.5 MG PO; +COREG12.5 M1 PO; +DOXYCYCLINE HY100 M3 PO; +IMDUR SA30 MG PO; +LANTUS SOL100 UNIT/1 SQ; +LASIX40 MG PO; +NOVOLOG100 UNIT/1 SQ
[2023-08-11 16:29] LABS: BASO % 0.1 % (0.0-1.0); HEMATOCRIT 27.7 % (42.0-52.0); LYMPH # 0.5 10*3/uL (1.3-4.4); LYMPH % 3.1 % (27.0-41.0); MEAN CELL VOLUME 92.3 fl (80.0-94.0); MEAN CORPUSCULAR HGB CONC 32.5 g/dl (33.0-37.0); MEAN PLATELET VOLUME 11.3 fl (9.6-12.3); MONO # 1.1 10*3/uL (0.1-1.0); MONO % 6.4 % (3.0-9.0); NEUT % 89.6 % (47.0-73.0); PLATELET COUNT AUTOMATED 228 10*3/uL (130-400); WHITE BLOOD COUNT 16.7 10*3/uL (4.8-10.8)
[2023-08-11 16:51] LABS: POTASSIUM 4.9 mmol/L (3.4-5.1); TOTAL PROTEIN 6.6 gm/dL (6.0-8.0)
[2023-08-11 21:45] LABS: BILIRUBIN Negative (Negative); BLOOD Negative (Negative); CLARITY Clear (Clear); COLOR Yellow (Yellow); GLUCOSE Negative (Negative); KETONE Negative (Negative); LEUKO ESTERASE Negative (Negative); NITRITE Negative (Negative); SPECIFIC GRAVITY 1.015 (1.001-1.030); UROBILINOGEN 0.2 E.U./dl (0.0-1.0)
[2023-08-11 21:53] LABS: BACTERIA TRACE; WBC 0-2 wbc/hpf (0-5)
[2023-08-12 08:00] VITALS: BP 188/110
[2023-08-12 10:19] VITALS: BP 118/50
[2023-08-12 11:56] LABS: HEMATOCRIT 30.3 % (42.0-52.0); MEAN CELL VOLUME 93.2 fl (80.0-94.0); MEAN CORPUSCULAR HGB 30.5 pg (27.0-31.0); MEAN CORPUSCULAR HGB CONC 32.7 g/dl (33.0-37.0); MEAN PLATELET VOLUME 11.2 fl (9.6-12.3); PLATELET COUNT AUTOMATED 261 10*3/uL (130-400); RED BLOOD COUNT 3.25 10*6/uL (4.50-5.90); RED CELL DISTRI WIDTH 13.9 % (0-14.5); WHITE BLOOD COUNT 14.9 10*3/uL (4.8-10.8)
[2023-08-12 12:03] LABS: MANUAL DIFF REFLEX YES
[2023-08-12 12:16] LABS: POTASSIUM 4.9 mmol/L (3.4-5.1)
[2023-08-12 12:31] LABS: BURR CELLS FEW; PLATELET SUFFICIENCY NORMAL (NORMAL); TOTAL CELLS COUNTED 100 #CELLS
[2023-08-12 16:00] VITALS: BP 118/50
[2023-08-12 20:00] VITALS: BP 140/72
[2023-08-13] VITALS: BP 130/72
[2023-08-13 08:00] VITALS: BP 110/54
[2023-08-13 11:29] LABS: HEMATOCRIT 30.2 % (42.0-52.0); MEAN CORPUSCULAR HGB 29.6 pg (27.0-31.0); MEAN CORPUSCULAR HGB CONC 31.1 g/dl (33.0-37.0); MEAN PLATELET VOLUME 11.5 fl (9.6-12.3); PLATELET COUNT AUTOMATED 282 10*3/uL (130-400); RED BLOOD COUNT 3.18 10*6/uL (4.50-5.90); RED CELL DISTRI WIDTH 13.8 % (0-14.5); WHITE BLOOD COUNT 10.5 10*3/uL (4.8-10.8)
[2023-08-13 11:30] LABS: MANUAL DIFF REFLEX YES
[2023-08-13 11:52] LABS: PLATELET SUFFICIENCY NORMAL (NORMAL); TOTAL CELLS COUNTED 100 #CELLS
[2023-08-13 11:53] LABS: BURR CELLS MODERATE
[2023-08-13 11:56] LABS: POTASSIUM 5.5 mmol/L (3.4-5.1)
[2023-08-13 12:00] VITALS: BP 146/55
[2023-08-13 16:00] VITALS: BP 105/54
[2023-08-13 20:00] VITALS: BP 103/48
[2023-08-14] VITALS: BP 101/41
[2023-08-14 05:22] LABS: BUN 50 mg/dl (9-23); CHLORIDE 102 mmol/L (98-107)
[2023-08-14 06:01] LABS: POTASSIUM 4.5 mmol/L (3.4-5.1)
[2023-08-14 06:22] LABS: BASO % 0.1 % (0.0-1.0); HEMATOCRIT 27.9 % (42.0-52.0); LYMPH # 0.6 10*3/uL (1.3-4.4); LYMPH % 4.2 % (27.0-41.0); MEAN CELL VOLUME 92.1 fl (80.0-94.0); MEAN CORPUSCULAR HGB 29.7 pg (27.0-31.0); MEAN CORPUSCULAR HGB CONC 32.3 g/dl (33.0-37.0); MEAN PLATELET VOLUME 11.7 fl (9.6-12.3); MONO # 0.9 10*3/uL (0.1-1.0); MONO % 6.1 % (3.0-9.0); NEUT # 13.4 10*3/uL (2.3-7.9); NEUT % 88.9 % (47.0-73.0); PLATELET COUNT AUTOMATED 305 10*3/uL (130-400); RED BLOOD COUNT 3.03 10*6/uL (4.50-5.90)
[2023-08-14 08:00] VITALS: BP 105/79
[2023-08-14 12:00] VITALS: BP 138/53
[2023-08-14] MEDS ORDERED: ZITHROMAX250 MG PO (14:25)
== END 2023-08-14 15:20 | disposition home or self-care (01) | DRG 177 ==
LOC: ED 13:04 → 4E 18:26 → EDHOLD 18:26 → 4E 22:36
PROVIDERS: Nurse Practitioner Family; Student in an Organized Health Care Education/Training Program; ADMIT Internal Medicine; ATTEND Internal Medicine
PROC: XW033E5 Introduction of Remdesivir Anti-infective into Peripheral Vein, Percutaneous Approach, New Technology Group 5 (ICD-10-PCS; principal; 2023-08-11)
DX: U07.1 COVID-19 (principal); I50.33 Acute on chronic diastolic (congestive) heart failure; N17.0 Acute kidney failure with tubular necrosis; J15.5 Pneumonia due to Escherichia coli; J12.82 Pneumonia due to coronavirus disease 2019; E44.0 Moderate protein-calorie malnutrition; E87.1 Hypo-osmolality and hyponatremia; J98.11 Atelectasis; Z68.1 Body mass index [BMI] 19.9 or less, adult; E03.9 Hypothyroidism, unspecified; N40.0 Benign prostatic hyperplasia without lower urinary tract symptoms; R00.1 Bradycardia, unspecified; R79.89 Other specified abnormal findings of blood chemistry; D64.9 Anemia, unspecified; E11.65 Type 2 diabetes mellitus with hyperglycemia; I11.0 Hypertensive heart disease with heart failure; H54.62 Unqualified visual loss, left eye, normal vision right eye; Z86.718 Personal history of other venous thrombosis and embolism; Z89.512 Acquired absence of left leg below knee; Z82.49 Family history of ischemic heart disease and other diseases of the circulatory system; Z80.8 Family history of malignant neoplasm of other organs or systems; Z90.49 Acquired absence of other specified parts of digestive tract; Z95.5 Presence of coronary angioplasty implant and graft; Z82.3 Family history of stroke; Z89.511 Acquired absence of right leg below knee; I25.2 Old myocardial infarction; Z79.82 Long term (current) use of aspirin; Z98.1 Arthrodesis status

== ENCOUNTER → 2023-11-28 | Outpatient (CLI) | payer MEDICARE ==
[~2023-11-28] MED LIST changes: +VIBRAMYCIN HYC100 MG PO; +ZITHROMAX250 MG PO
== END | disposition home or self-care (01) ==
LOC: LAB 10:25
PROVIDERS: ATTEND Urology
DX: C61 Malignant neoplasm of prostate (principal)

== ENCOUNTER 2025-03-24 12:19 | Emergency (ER) | payer MEDICARE ==
[~2025-03-24] VITALS: Ht 152.4 cm; Wt 59.9 kg
[2025-03-24 13:03] LABS: BASO # 0.1 10*3/uL (0.0-0.1); BASO % 0.8 % (0.0-1.0); EOS # 0.5 10*3/uL (0.0-0.4); EOS % 6.5 % (1.0-4.0); MEAN CELL VOLUME 94.7 fl (80.0-94.0); MEAN CORPUSCULAR HGB 30.5 pg (27.0-31.0); MEAN PLATELET VOLUME 10.4 fl (9.6-12.3); MONO # 1.2 10*3/uL (0.1-1.0); MONO % 13.8 % (3.0-9.0); NEUT # 5.0 10*3/uL (2.3-7.9); NEUT % 60.1 % (47.0-73.0); NUCLEATED RED BLOOD CELL 0.0 % (0.0-0.0); NUCLEATED RED BLOOD CELL 0.0 10*3/uL (0.0-0.0); PLATELET COUNT AUTOMATED 237 10*3/uL (130-400); RED CELL DISTRI WIDTH 14.5 % (0-14.5)
[2025-03-24 13:26] LABS: BUN 21 mg/dl (9-23)
== END 2025-03-24 15:52 | disposition home or self-care (01) ==
LOC: ED 12:19
PROVIDERS: Internal Medicine
DX: E11.649 Type 2 diabetes mellitus with hypoglycemia without coma (principal); Z90.49 Acquired absence of other specified parts of digestive tract; Z90.89 Acquired absence of other organs; Z79.4 Long term (current) use of insulin; Z79.82 Long term (current) use of aspirin; Z95.5 Presence of coronary angioplasty implant and graft